=== PATIENT | male | born 1980 | race Caucasian/White ===

== ENCOUNTER 2021-09-26 16:19 | Inpatient (IN) | payer OTHER ==
[~2021-09-26] VITALS: Ht 182.9 cm; Wt 91.9 kg
[2021-09-26 17:26] LABS: BASOPHILS % (AUTO) 0.4 % (0.0-2.0); EOSINOPHILS % (AUTO) 1.6 % (1.0-6.0); HEMATOCRIT 40.5 % (41-53); HEMOGLOBIN 14.1 g/dL (13.5-17.5); LYMPHOCYTES # (AUTO) 1.3 K/uL (1.0-4.8); LYMPHOCYTES % (AUTO) 16.7 % (22.0-44.0); MEAN CORPUSCULAR HEMOGLOBIN 30.6 pg (26.0-34.0); MEAN CORPUSCULAR HGB CONC 34.9 G/dL (31.0-37.0); MEAN CORPUSCULAR VOLUME 88 fL (80-100); MONOCYTES # (AUTO) 0.4 K/uL (0.1-1.0); MONOCYTES % (AUTO) 5.3 % (2.0-9.0); NEUTROPHILS # (AUTO) 5.7 K/uL (1.8-7.7); PLATELET COUNT (AUTO) 222 K/uL (150-450); RED BLOOD CELL COUNT(AUTO) 4.61 MIL/uL (4.50-5.90); RED CELL DISTRIBUTION WIDTH 13.8 % (11.5-14.5)
[2021-09-26 17:37] LABS: ANION GAP 8 mmol/L (8-16); CALCIUM, TOTAL 9.3 mg/dL (8.8-10.5); CARBON DIOXIDE 25 mmol/L (22-29); CHLORIDE 103 mmol/L (98-107); CREATININE 0.76 mg/dL (0.60-1.30); GLUCOSE,RANDOM 82 mg/dL (70-110); POTASSIUM 3.9 mmol/L (3.5-5.1); SODIUM SERUM 136 mmol/L (136-145); UREA NITROGEN, BLOOD 15 mg/dL (7-18)
[2021-09-26 17:41] LABS: GLOMERULAR FILTR. RATE CALC > 60 mL/min (>60)
[2021-09-26 17:42] LABS: ALANINE AMINOTRANSFERASE 94 U/L (12-78); ALBUMIN 3.9 g/dL (3.4-5.0); ALKALINE PHOSPHATASE 79 U/L (46-116); ASPARTATE AMINOTRANSFERASE 60 U/L (15-37); BILIRUBIN,TOTAL 0.7 mg/dL (0.1-1.0); TOTAL PROTEIN, SERUM 7.5 g/dL (6.4-8.2)
[2021-09-26] MEDS ORDERED: SODIUM CHLORIDE 0.9% 1,000 ML IV ONE (18:45)
[2021-09-26] MEDS ORDERED: MAGNESIUM HYDROXIDE SUSPENSION 30 ML UDCUP PO PRN (18:45)
[2021-09-26 19:00] LABS: COVID AG,FIA SOURCE NASAL SWAB
[2021-09-26] MEDS: METHADONE HCL 10 MG TABLET PO SCH (19:01)
[2021-09-26 20:00] VITALS: BP 121/83
[2021-09-26] MEDS: FAMOTIDINE 20 MG TABLET PO SCH (21:05)
[2021-09-27 04:00] VITALS: BP 108/77
[2021-09-27 06:19] LABS: AMPHET/METH SCREEN,URINE NEGATIVE (NEGATIVE); BARBITURATE SCREEN, URINE NEGATIVE (NEGATIVE); BENZODIAZEPINES SCREEN,URINE NEGATIVE (NEGATIVE); CANNABINOID SCREEN,URINE POSITIVE (NEGATIVE); COCAINE SCREEN,URINE NEGATIVE (NEGATIVE); METHADONE SCREEN, URINE POSITIVE (NEGATIVE); OPIATE SCREEN,URINE NEGATIVE (NEGATIVE)
[2021-09-27 06:21] LABS: PHENCYCLIDINE SCREEN,URINE NEGATIVE (NEGATIVE)
[2021-09-27 08:05] VITALS: BP 98/65
[2021-09-27] MEDS: METHADONE HCL 10 MG TABLET PO SCH (09:08)
[2021-09-27] MEDS: FAMOTIDINE 20 MG TABLET PO SCH ×2 (09:08→21:09)
[2021-09-27 15:49] VITALS: BP 108/65
[2021-09-27 19:12] VITALS: BP 127/75
[2021-09-27] MEDS: ZOLPIDEM TARTRATE 5 MG TABLET PO PRN (21:09)
[2021-09-28 04:46] VITALS: BP 124/79
[2021-09-28 07:52] VITALS: BP 116/68
[2021-09-28] MEDS: FAMOTIDINE 20 MG TABLET PO SCH ×2 (08:32→20:49)
[2021-09-28] MEDS ORDERED: METHADONE HCL 10 MG TABLET PO SCH (09:00)
[2021-09-28 15:58] VITALS: BP 119/65
[2021-09-28] MEDS: ACETAMINOPHEN 325 MG TABLET PO PRN (16:44)
[2021-09-28 19:27] VITALS: BP 121/72
[2021-09-28] MEDS: ZOLPIDEM TARTRATE 5 MG TABLET PO PRN (20:49)
[2021-09-29 04:00] VITALS: BP 128/75
[2021-09-29 07:35] VITALS: BP 110/69
[2021-09-29] MEDS: ONDANSETRON HCL 4 MG/2 ML VIAL IVP PRN (08:32)
[2021-09-29] MEDS: FAMOTIDINE 20 MG TABLET PO SCH ×2 (08:33→20:49)
[2021-09-29] MEDS ORDERED: METHADONE HCL 10 MG TABLET PO SCH (09:00)
[2021-09-29 15:27] VITALS: BP 107/64
[2021-09-29 19:26] VITALS: BP 125/72
[2021-09-29] MEDS: ZOLPIDEM TARTRATE 5 MG TABLET PO PRN (20:49)
[2021-09-29] MEDS: ACETAMINOPHEN 325 MG TABLET PO PRN (20:50)
[2021-09-30 05:29] VITALS: BP 116/73
[2021-09-30 07:37] VITALS: BP 131/75
[2021-09-30] MEDS ORDERED: SODIUM CHLORIDE 0.9% 1,000 ML IV ONE (09:00)
[2021-09-30] MEDS: FAMOTIDINE 20 MG TABLET PO SCH ×2 (09:22→20:33)
[2021-09-30] MEDS: METHADONE HCL 10 MG TABLET PO SCH (09:22)
[2021-09-30 16:10] VITALS: BP 126/78
[2021-09-30 19:24] VITALS: BP 123/71
[2021-09-30] MEDS: ONDANSETRON HCL 4 MG/2 ML VIAL IVP PRN (20:32)
[2021-09-30] MEDS: ZOLPIDEM TARTRATE 5 MG TABLET PO PRN (20:33)
[2021-09-30] MEDS: ACETAMINOPHEN 325 MG TABLET PO PRN (20:37)
[2021-10-01 05:19] VITALS: BP 121/63
[2021-10-01 07:30] VITALS: BP 100/69
[2021-10-01] MEDS: FAMOTIDINE 20 MG TABLET PO SCH ×2 (08:44→20:45)
[2021-10-01] MEDS: METHADONE HCL 10 MG TABLET PO SCH (08:45)
[2021-10-01 19:56] VITALS: BP 117/68
[2021-10-01] MEDS: ZOLPIDEM TARTRATE 5 MG TABLET PO PRN (20:45)
[2021-10-01] MEDS: ACETAMINOPHEN 325 MG TABLET PO PRN (20:45)
[2021-10-02 04:00] VITALS: BP 106/63
[2021-10-02 07:40] VITALS: BP 117/85
[2021-10-02] MEDS: FAMOTIDINE 20 MG TABLET PO SCH ×2 (07:58→20:27)
[2021-10-02 15:36] VITALS: BP 115/94
[2021-10-02 20:00] VITALS: BP 121/82
[2021-10-02] MEDS: ZOLPIDEM TARTRATE 5 MG TABLET PO PRN (20:27)
[2021-10-03 04:00] VITALS: BP 113/70
[2021-10-03 08:09] VITALS: BP 131/80
[2021-10-03] MEDS: FAMOTIDINE 20 MG TABLET PO SCH (08:21)
== END 2021-10-03 13:40 | DRG 897 ==
LOC: EMS 16:22 → 6S 18:43
PROVIDERS: ADMIT Internal Medicine; ATTEND Internal Medicine
DX: F11.13 Opioid abuse with withdrawal (principal); Z20.822 Contact with and (suspected) exposure to COVID-19; F17.210 Nicotine dependence, cigarettes, uncomplicated
CPT/HCPCS: 80053; 85025; 99285; J2405; J7030